=== PATIENT | female | born 1980 | race African-American/Black ===

== ENCOUNTER 2017-12-21 10:57 | Emergency (ER) | payer SELFPAY ==
[~2017-12-21] VITALS: Ht 157.5 cm; Wt 54.7 kg
[2017-12-21 11:00] VITALS: BP 161/95
== END 2017-12-21 12:00 | disposition home or self-care (01) ==
LOC: ED 11:24
DX: L24.3 Irritant contact dermatitis due to cosmetics (principal); L03.115 Cellulitis of right lower limb
CPT/HCPCS: 99283